=== PATIENT | female | born 1980 | race Caucasian/White ===

== ENCOUNTER 2024-07-07 10:29 | Outpatient (AMB) | payer MEDICARE, MEDICAID, SELFPAY ==
--- NOTE | 2024-07-07 10:38 | MHC.PC.OV ---
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 // Med review Intake Note: Solange is here today to establish care and to discuss her medication News Video Editor Required: No Allergies No Known Allergies Allergy (Verified 07/07/24 10:42) Tobacco use date assessed: 07/07/24 Dental Screening Dental Screen Date: 07/07/24 Did you have a dental visit in the last 12 months?: No Did you have a dental problem in the last 6 months where you did not have access to dental care?: No Was dental information given to patient?: Yes HPI HPI Comments History of Present Illness Details This is a 43-year-old female with a past medical history of CVA 2009 and 2013, eating disorder in remission, anxiety with depression, fine motor impairment, legal blindness of both eyes, ataxia, muscle spasticity, vitamin-D deficiency and chronic pain presenting to establish care. Her prior medical records are unavailable. She is accompanied by 1 of her caretakers, Juanita. The patient had her 1st stroke in 2009 and her 2nd stroke in 2013. She says this was the result of her eating disorder which has been in remission over the past decade. She suffered from bulimia and anorexia. She has apraxia and ataxia and weakness due to the stroke. She is wheelchair-bound. They need a new prescription for a wheelchair sent to [facility]. She has weekly physical therapy, occupational therapy and speech therapy. She also has staffing around the clock at home. She lives with her . Anxiety and depression are treated with fluoxetine 40 mg daily. She would like a referral for a therapist. Her is 1 of her caretakers, and this creates some stress at home. Her PHQ-9 is positive with a score of 6. No SI or HI. She has hypothyroidism which is treated with levothyroxine 25 mcg daily. No recent labs, but historically she was euthyroid. She has chronic pain including neuropathy in her feet resulting from prior strokes. Patient says feet are always cold since her strokes years ago. She also has muscle spasticity in the lot of pain in her neck and her middle and lower back. Her muscles are very tight when she wakes up in the morning. The pain does not radiate down her arms to her hands. She is interested in referral to pain management and physiatry. She would also like to be referred to [facility] in [place] for physical therapy. She is due for a mammogram. This is ordered. She is due for a colonoscopy. Referral placed. Referred for annual gynecologic exam. ROS: Constitutional: No unexplained weight loss, fever or night sweats Neurologic: see HPI Musculoskeletal: see HPI Hematologic/Lymphatics: No bleeding or bruising. Psychiatric: No SI/HI. Physical exam: Constitutional: Alert, in no distress. Seated in wheelchair. Head: Normocephalic. Neck: Supple, Full range of motion. No lymphadenopathy. Respiratory: Clear to auscultation. Cardiovascular: S1 S2 regular. No murmur Neurologic: Choppy speech consistent with apraxia Skin: No rashes or lesions. Spine: No midline tenderness. Paraspinal muscles and trapezius tender. Full range of motion of the cervical spine. Extremities: Lower legs and feet are cool and mottled. No open wounds. Upper and lower extremity pulses intact bilaterally. 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 Alcohol intake: former Patient Tobacco Use Status: Never used Tobacco e-Cigarette/Vaping Use: Currently Using Substance Use Type: Marijuana service: No Current occupational status: disabled Current occupational exposures/hazards: No Cognitive needs: No Hearing needs: No Vision needs: Yes Questionnaire PHQ-9 Over the last 2 weeks, how often have you been bothered by any of the following problems? 1. Little interest or pleasure in doing things: not at all 2. Feeling down, depressed, or hopeless: not at all 3. Trouble falling or staying asleep, or sleeping too much: not at all 4. Feeling tired or having little energy: several days 5. Poor appetite or overeating: more than half the days 6. Feeling bad about yourself - or that you are a failure or have let yourself or your family down: several days 7. Trouble concentrating on things, such as reading the newspaper or watching television: more than half the days 8. Moving or speaking so slowly that other people could have noticed. Or the opposite - being so fidgety or restless that you have been moving around a lot more than usual: not at all 9. Thoughts that you would be better off or of hurting yourself in some way: not at all Total score: 6 Depression Screening Interpretation: Positive (Waiting List) Depression Screening Follow-up: Existing condition, In treatment and Other Depression Screening Done: Yes 30474 - PHQ-9 Billing: Patient declined-do not bill Source: Developed by Drs. Get Garcia, Shante Yi, Domnigo Sanchez and colleagues, with an educational eduard from [employer]. Thrive Questionnaire Date Thrive assessed: 07/05/24 I am a: Patient What is your living situation today?: I have a steady place to live Within the past 12 months, did the food you bought not last and you didn't have the money to get more?: Never true Within the past 12 months, did you worry whether your food would run out before you got money to buy more?: Never true Do you have trouble paying for medicines?: No Do you have trouble getting transportation to medical appointments?: No Do you have trouble paying your heating and electricity bill?: No Do you have trouble taking care of your child, family member or friend?: No Do you have trouble with day-to-day activities such as bathing, preparing meals, shopping, managing finances, etc.?: Yes Are you currently unemployed and looking for a job?: No Are you interested in more education?: No Please select the resources that you would like help with: None Currently or been in a relationship where the following occur: No concerns reported THRIVE Score: 0 AUDIT C Alcohol Use Questionnaire (AUDIT-C) 1. How often do you have a drink containing alcohol?: Never 2. How many drinks containing alcohol do you have on a typical day when you are drinking?: 1 or 2 3. How often do you have six or more drinks on one occasion?: Never Total Score: 0 CAREY-7 AMB Questionnaire CAREY-7 Date CAREY - 7 assessed: 07/07/24 Feeling nervous, anxious, or on edge: 3 = Nearly every day Not being able to stop or control worryin = Nearly every day Worrying too much about different things: 3 = Nearly every day Trouble relaxin = Nearly every day Being so restless that it is hard to sit still: 2 = More than half the days Becoming easily annoyed or irritable: 2 = More than half the days Feeling afraid as if something awful might happen: 1 = Several days Total CAREY-7 score (0-4 normal; 5-9 mild; 10-14 moderate; 15-21 severe): 17 Source: Developed by Drs. Get Garcia, Shante Yi, Domingo Sanchez and colleagues, with an educational eduard from [employer]. CAREY-7 Assessment Billing CAREY-7 Assessment Tool: CAREY-7 Assessment 18560 Physical exam (Primary Care) Vital Signs: Last Vital Signs Pulse 72 07/07/24 10:47 Resp 14 07/07/24 10:47 BP 102/62 07/07/24 10:47 Pulse Ox 98 07/07/24 10:47 Oxygen Delivery Method Room Air 07/07/24 10:47 BMI result Body Mass Index 18.9 Tobacco/Smoking Status: Tobacco use Status Tobacco use date assessed 07/07/24 07/07/24 10:59 Patient Tobacco Use Status Never used Tobacco 07/07/24 10:59 e-Cigarette/Vaping Use Currently Using 07/07/24 10:59 PHQ-9: PHQ-9 Score PHQ-9: Total score 6 07/07/24 13:09 Depression Screening Interpretation: Positive (Waiting List) Depression Screening Follow-up: Existing condition, In treatment and Other Thrive Assessment: Date of Thrive Assessment Date Thrive assessed 07/05/24 07/07/24 10:59 Currently or been in a relationship where the following occur: No concerns reported Coding Level of Care Code New Pt Level 4 (80334) Complex EM visit Add On G2211 Diagnoses Anxiety and depression F41.9; F32.A Vitamin D deficiency E55.9 Cervicalgia M54.2 Chronic bilateral thoracic back pain M54.6; G89.29 Chronicity: chronic Back pain laterality: bilateral Chronic bilateral low back pain without sciatica M54.50; G89.29 Chronicity: chronic Back pain laterality: bilateral Sciatica presence: without sciatica History of CVA with residual deficit I69.30 Muscle spasm of back M62.830 Other specified hypothyroidism E03.8 Hypothyroidism type: other 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 Referred to Psychology. (2) Vitamin D deficiency: Code(s): E55.9 - Vitamin D deficiency, unspecified Category: Medical Plan: Continue supplement. Check vitamin-D level. (3) Cervicalgia: Code(s): M54.2 - Cervicalgia Category: Medical Plan: Ordered x-rays of the cervical, thoracic and lumbar spine. Refer to physiatry. Trial of cyclobenzaprine 5-10 mg in the evening. Discussed it can cause sedation and dizziness and increase fall risk. (4) Thoracic back pain: Code(s): M54.6 - Pain in thoracic spine Category: Medical Qualifiers: Chronicity: chronic Back pain laterality: bilateral Qualified Code(s): M54.6 - Pain in thoracic spine; G89.29 - Other chronic pain (5) Lumbago: Code(s): M54.50 - Low back pain, unspecified Category: Medical Qualifiers: Chronicity: chronic Back pain laterality: bilateral Sciatica presence: without sciatica Qualified Code(s): M54.50 - Low back pain, unspecified; G89.29 - Other chronic pain (6) History of CVA with residual deficit: Comment: x 2 in 2009 and 2014 due to eating disorder Code(s): I69.30 - Unspecified sequelae of cerebral infarction Category: Medical Plan: Continue speech therapy, occupational therapy and physical therapy. Referral placed to [facility]. Patient has staffing around the clock at home. She is wheelchair-bound due to residual effects of stroke including weakness and ataxia. Wheelchair is medically necessary. Prescription will be sent to [facility]. (7) Muscle spasm of back: Code(s): M62.830 - Muscle spasm of back Category: Medical (8) Hypothyroid: Code(s): E03.9 - Hypothyroidism, unspecified Category: Medical Qualifiers: Hypothyroidism type: other Qualified Code(s): E03.8 - Other specified hypothyroidism Plan: Continue levothyroxine. Check TSH. 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 (10) Ataxia: Code(s): R27.0 - Ataxia, unspecified Category: Medical Plan: Referral placed for physical therapy. Plan Follow up in 2 months for a physical exam. Orders: Orders Vitamin B12 07/07/24 E55.9 - Vitamin D deficiency, unspecified, F32.A - Depression, unspecified, F41.9 - Anxiety disorder, unspecified, Z13.6 - Encounter for screening for cardiovascular disorders, Z78.9 - Other specified health status, Z91.89 - Other specified personal risk factors, not elsewhere classified TSH reflex Free T4 07/07/24 E55.9 - Vitamin D deficiency, unspecified, F32.A - Depression, unspecified, F41.9 - Anxiety disorder, unspecified, Z13.6 - Encounter for screening for cardiovascular disorders, Z78.9 - Other specified health status Complete Blood Count no Diff 07/07/24 E55.9 - Vitamin D deficiency, unspecified, F32.A - Depression, unspecified, F41.9 - Anxiety disorder, unspecified, Z13.6 - Encounter for screening for cardiovascular disorders, Z78.9 - Other specified health status Comprehensive Met. Panel 07/07/24 E55.9 - Vitamin D deficiency, unspecified, F32.A - Depression, unspecified, F41.9 - Anxiety disorder, unspecified, Z13.6 - Encounter for screening for cardiovascular disorders, Z78.9 - Other specified health status XR thoracic spine 2V 07/07/24 M54.6 - Pain in thoracic spine XR lumbar spine 2-3V 07/07/24 M54.6 - Pain in thoracic spine Vitamin D 25-OH (D2 and D3) Today E55.9 - Vitamin D deficiency, unspecified, G62.9 - Polyneuropathy, unspecified Lipid Panel 07/07/24 E55.9 - Vitamin D deficiency, unspecified, E78.5 - Hyperlipidemia, unspecified, F32.A - Depression, unspecified, F41.9 - Anxiety disorder, unspecified, Z13.6 - Encounter for screening for cardiovascular disorders, Z78.9 - Other specified health status MM screening mammo BI 07/07/24 Z12.31 - Encounter for screening mammogram for malignant neoplasm of breast XR cervical spine 5V 07/07/24 M54.2 - Cervicalgia, M54.50 - Low back pain, unspecified, M54.6 - Pain in thoracic spine PT Evaluation and Treatment Today G89.29 - Other chronic pain, M54.2 - Cervicalgia, M54.50 - Low back pain, unspecified, M54.6 - Pain in thoracic spine, M62.830 - Muscle spasm of back, R27.0 - Ataxia, unspecified Referrals [facility] Referral Z01.419 - Encounter for gynecological examination (general) (routine) without abnormal findings Gastroenterology Referral Z12.11 - Encounter for screening for malignant neoplasm of colon Medications: New cyclobenzaprine 5 - 10 mg (1 - 2 x 5 mg) PO BEDTIME PRN 30 tabs 0RF muscle spasm chair, wheel (Wheel chair) As directed 1 ea 0RF I69.30 - Unspecified sequelae of cerebral infarction, I69.393 - Ataxia following cerebral infarction
[2024-07-07 10:47] VITALS: BP 102/62; PULSE 72; RESP 14; O2SAT 98; BMI 18.9
== END 2024-07-07 11:27 | disposition home or self-care (01) ==
LOC: HO.HMCFM 10:30
PROVIDERS: PCP Physician Assistant Medical; Visit Provider Physician Assistant Medical
DX: F41.9 Anxiety disorder, unspecified (principal); F32.A Depression, unspecified; E55.9 Vitamin D deficiency, unspecified; M54.2 Cervicalgia; M54.6 Pain in thoracic spine; G89.29 Other chronic pain; M54.50 Low back pain, unspecified; I69.30 Unspecified sequelae of cerebral infarction; M62.830 Muscle spasm of back; E03.8 Other specified hypothyroidism; I69.390 Apraxia following cerebral infarction; R27.0 Ataxia, unspecified

== ENCOUNTER → 2024-07-07 10:29 | Outpatient (BNVA) | payer MEDICARE, MEDICAID, SELFPAY | LOC: CF 07-08 11:02 | PROVIDERS: PCP Physician Assistant Medical; Visit Provider Physician Assistant Medical | DX: E55.9 Vitamin D deficiency, unspecified (principal); M54.2 Cervicalgia; M54.6 Pain in thoracic spine; G89.29 Other chronic pain; M54.50 Low back pain, unspecified; M62.830 Muscle spasm of back; E03.8 Other specified hypothyroidism; R27.0 Ataxia, unspecified; F41.9 Anxiety disorder, unspecified; F32.A Depression, unspecified; Z86.73 Personal history of transient ischemic attack (TIA), and cerebral infarction without residual deficits | CPT/HCPCS: 96127; 99202 ==

== ENCOUNTER 2024-07-08 10:43 | Outpatient (REF) | payer MEDICARE, MEDICAID, SELFPAY ==
--- NOTE | ~2024-07-08 | XR_ITS ---
EXAMINATION: XR LUMBOSACRAL SPINE CLINICAL INFORMATION: M54.6 - Pain in thoracic spine COMPARISON: None available. TECHNIQUE: Three views of the lumbosacral spine. FINDINGS: No acute cortical disruption or malalignment. No lytic or blastic lesions. XR/XR lumbar spine 2-3V IMPRESSION: No acute fracture or listhesis. Negative x-ray. Electronically signed by: Olman Dockery MD 07/11/2024 11:31 AM EDT
--- NOTE | ~2024-07-08 | XR_ITS ---
EXAMINATION: XR CERVICAL SPINE CLINICAL INFORMATION: M54.2 - Cervicalgia COMPARISON: None available. TECHNIQUE: 3 views of the cervical spine were obtained. FINDINGS: Craniocervical junction is intact. Marginal osteophyte formation and endplate sclerosis decreased intervertebral disc height and subchondral irregularity C4-5 and C5-6 level. Loss of the physiologic lordosis. No acute cortical disruption or gross malalignment. No lytic or blastic lesion Upper airways patent. XR/XR cervical spine 3V IMPRESSION: Cervical spondylosis C4-5 and C5-6 levels. Electronically signed by: Olman Dockery MD 07/11/2024 10:23 AM EDT
--- NOTE | ~2024-07-08 | XR_ITS ---
EXAMINATION: XR THORACIC SPINE CLINICAL INFORMATION: M54.6 - Pain in thoracic spine COMPARISON: None available. TECHNIQUE: 3 views of the thoracic spine were obtained. FINDINGS: There is a gentle levoconvex scoliosis, apex at T11. There is a normal kyphosis. There is no fracture, compression deformity, or suspicious bone lesion. There is normal alignment without subluxation. Moderate disc degeneration noted throughout the thoracic spine. Normal facet alignment with mild multilevel degenerative facet arthrosis. The imaged soft tissues, mediastinal contents, and lungs appear normal. XR/XR thoracic spine 2V IMPRESSION: 1. No acute findings of the thoracic spine. 2. Mild to moderate degenerative spondylosis. Electronically signed by: Scott Curtis MD 07/11/2024 01:53 PM EDT
[2024-07-08 11:31] LABS: Hematocrit 42.5 % (37.0-47.0); Hemoglobin 13.9 g/dl (12.0-16.0); Mean Corpuscular HGB Conc 32.7 g/dl (31.0-35.0); Mean Corpuscular Hemoglobin 30.8 pg (27.0-33.0); Mean Platelet Volume 11.7 fL (9.4-12.3); Platelet Count 194 X10*3/uL (160-400); Red Blood Count 4.52 X10*6/uL (4.20-5.50); White Blood Count 6.4 X10*3/uL (4.8-10.8)
[2024-07-08 13:02] LABS: Alanine Aminotransferase 11 U/L (0-31); Albumin Level 4.3 g/dL (3.5-5.0); Alkaline Phosphatase 84 U/L (39-117); Anion Gap 14 (12-20); Aspartate Amino Transferase 30 U/L (5-31); Bilirubin Total 0.6 mg/dL (0.0-1.0); Blood Urea Nitrogen 11 mg/dL (9-16); Calcium 9.6 mg/dL (8.4-10.2); Carbon Dioxide 22 mmol/L (22-29); Chloride 110 mmol/L (96-108); Cholesterol 221 mg/dL (<200); Estimated Glomerular Filt Rate > 60; Glucose Random 89 mg/dL (60-115); HDL Cholesterol 78 mg/dL (>40); LDL Cholesterol Calculated 133 mg/dL (<100); Potassium 4.5 mmol/L (3.3-5.1); Sodium 141 mmol/L (135-145); TSH reflex Free T4 1.65 uIU/mL (0.32-4.0); Total Protein 7.5 g/dL (6.5-8.0); Triglycerides 50 mg/dL (<150)
[2024-07-08 13:18] LABS: Vitamin B12 489 pg/mL (200-900)
[2024-07-14 13:27] LABS: Vitamin D 25-OH, D2 <4 ng/mL; Vitamin D 25-OH, D3 56 ng/mL; Vitamin D 25-OH, Total 56 ng/mL (30-100)
== END 2024-07-08 10:44 | disposition home or self-care (01) ==
LOC: HO.XRAY 10:43
PROVIDERS: PCP Physician Assistant Medical; Visit Provider Physician Assistant Medical
DX: Z13.89 Encounter for screening for other disorder (principal)
CPT/HCPCS: 36415; 72040; 72070; 72100; 80053; 80061; 82306; 82607; 84443; 85027

== ENCOUNTER 2024-07-08 11:46 | Emergency (ER) | payer MEDICARE, MEDICAID, SELFPAY ==
--- NOTE | ~2024-07-08 | CT_ITS ---
EXAMINATION: CT HEAD WITHOUT CONTRAST CLINICAL INFORMATION: Head injury, right forehead contusion. COMPARISON: None available. TECHNIQUE: Contiguous axial imaging was performed from the skull base to vertex without intravenous administration of contrast. This CT examination was performed using dose optimization techniques as appropriate, variously including the following: *Automated exposure control *Adjustment of mA and/or kV according to patient size (this includes techniques or standardized protocols for targeted exams where dose is matched to indication/reason for exam; i.e. extremities or head) *Use of iterative reconstruction technique FINDINGS: There is no evidence of intracranial hemorrhage or extra-axial fluid collection. There is no mass effect, or edema. No CT evidence of acute territorial infarct. Extensive large territory symmetric cystic encephalomalacia is present of the superior frontal lobes, parietal lobes, and occipital lobes. Mild ex vacuo dilatation of the lateral ventricular atria. Ventricles otherwise normal in size and configuration. No hydrocephalus. No midline shift. Negative hyperdense MCA sign. Negative insular ribbon sign. Normal pituitary. Globes and orbital contents image normally. Extracranial soft tissues demonstrate a small right frontal scalp hematoma. The paranasal sinuses, mastoid air cells, and tympanic cavities are normally aerated. No suspicious bony abnormalities. There are no acute fractures evident. CT/CT head/brain wo IV con IMPRESSION: 1. Small right frontal scalp hematoma. No fracture. 2. No acute intracranial abnormality. 3. Extensive bilateral symmetric cystic encephalomalacia of the superior frontal, parietal, and occipital lobes. This is likely due to previous / ischemic event or possibly secondary to old trauma.. Electronically signed by: Scott Curtis MD 07/08/2024 01:14 PM EDT
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
[2024-07-08 12:01] VITALS: BP 133/79; PULSE 83; RESP 16; TEMP 36.8; O2SAT 98; BMI 18.9
[2024-07-08 12:07] VITALS: BP 133/79; PULSE 83; RESP 16; TEMP 36.8; O2SAT 98
[2024-07-08 14:21] VITALS: BP 126/73; PULSE 77; RESP 14; TEMP 36.3; O2SAT 100
[2024-07-08 14:28] VITALS: BP 126/73; PULSE 77; RESP 14; TEMP 36.3; O2SAT 100
== END 2024-07-08 14:30 | disposition home or self-care (01) ==
PROVIDERS: Emergency Provider Emergency Medicine; PCP Physician Assistant Medical
DX: S00.83XA Contusion of other part of head, initial encounter (principal); R51.9 Headache, unspecified; M54.6 Pain in thoracic spine; M54.2 Cervicalgia; W05.0XXA Fall from non-moving wheelchair, initial encounter; Y93.9 Activity, unspecified; Y92.239 Unspecified place in hospital as the place of occurrence of the external cause; Y99.8 Other external cause status; Z86.73 Personal history of transient ischemic attack (TIA), and cerebral infarction without residual deficits; Z79.899 Other long term (current) drug therapy
CPT/HCPCS: 36415; 70450; 72040; 72070; 72100; 80053; 80061; 82306; 82607; 84443; 85027; 99284

== ENCOUNTER → 2024-07-08 11:54 | Outpatient (BNV) | payer MEDICARE, MEDICAID, SELFPAY | PROVIDERS: Emergency Provider Emergency Medicine; PCP Physician Assistant Medical; Visit Provider Radiology Diagnostic Radiology | DX: S00.83XA Contusion of other part of head, initial encounter (principal) | CPT/HCPCS: 70450; 72040; 72070; 72100 ==

== ENCOUNTER 2024-07-21 13:49 | Outpatient (AMB) | payer MEDICARE, MEDICAID, SELFPAY ==
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
[2024-07-21 13:58] VITALS: BP 98/58; PULSE 87; TEMP 36.6; O2SAT 98; BMI 18.9
[2024-07-21 14:03] VITALS: BP 100/58
== END 2024-07-21 14:23 | disposition home or self-care (01) ==
LOC: HO.HMCFM 13:50
PROVIDERS: PCP Physician Assistant Medical; Visit Provider Physician Assistant Medical
DX: F41.9 Anxiety disorder, unspecified (principal); F32.A Depression, unspecified; E55.9 Vitamin D deficiency, unspecified; M54.2 Cervicalgia; M54.6 Pain in thoracic spine; G89.29 Other chronic pain; M54.50 Low back pain, unspecified; I69.30 Unspecified sequelae of cerebral infarction; M62.830 Muscle spasm of back; E03.8 Other specified hypothyroidism; I69.390 Apraxia following cerebral infarction; R27.0 Ataxia, unspecified; S09.90XA Unspecified injury of head, initial encounter

== ENCOUNTER → 2024-07-21 13:49 | Outpatient (BNVA) | payer MEDICARE, MEDICAID, SELFPAY | PROVIDERS: PCP Physician Assistant Medical; Visit Provider Physician Assistant Medical | DX: F41.9 Anxiety disorder, unspecified (principal); F32.A Depression, unspecified; E55.9 Vitamin D deficiency, unspecified; M54.2 Cervicalgia; M54.6 Pain in thoracic spine; G89.29 Other chronic pain; M54.50 Low back pain, unspecified; I69.30 Unspecified sequelae of cerebral infarction; M62.830 Muscle spasm of back; E03.8 Other specified hypothyroidism; I69.390 Apraxia following cerebral infarction; R27.0 Ataxia, unspecified; S09.90XA Unspecified injury of head, initial encounter; H54.8 Legal blindness, as defined in USA; Z79.899 Other long term (current) drug therapy; X58.XXXA Exposure to other specified factors, initial encounter; Y93.9 Activity, unspecified; Y92.9 Unspecified place or not applicable; Y99.9 Unspecified external cause status | CPT/HCPCS: 96127; 99212 ==

== ENCOUNTER 2024-08-02 11:17 | Outpatient (AMB) | payer MEDICARE, MEDICAID, SELFPAY ==
--- NOTE | 2024-08-02 11:20 | A.OFFVIS_ITS ---
Vital Signs 08/02/24 11:24 Height 5 ft 1 in Weight 100 lb BMI 18.9 BP 116/64 Blood Pressure Location Rt brachial Position Sitting Pulse 80 Pulse Source Pulse Oximeter Pulse Oximetry (%) 100 Oxygen Delivery Method Room Air Intake Visit Reasons: Low back pain, unspecified Intake Note: Pain today 07/14 Warehouse Production Worker Required: No Accompanied by: MANAGER CAREER Allergies No Known Allergies Allergy (Verified 08/02/24 11:24) Medication List - Last Reconciled 08/02/24 by WILMA Zapata chair, wheel (Wheel chair) As directed cholecalciferol (vitamin D3) (Vitamin D3) 125 mcg PO DAILY cyclobenzaprine 5 - 10 mg (1 - 2 x 5 mg) PO BEDTIME PRN docusate sodium 50 mg PO DAILY fluoxetine 40 mg PO DAILY levothyroxine 25 mcg PO DAILY multivitamin (Daily Multi-Vitamin tablet) 1 tab PO DAILY vitamin B complex 1 tab PO DAILY HPI Comments Details: The patient is a very pleasant 43-year-old female presenting with chronic neck and low back pain, exacerbated following a fall in early July. She has a significant history of strokes in 2009 and 2013, resulting in residual neurological deficits such as right-sided weakness and visual impairment. Her chronic pain is characterized by muscle spasms in the neck and between the shoulder blades, with the pain radiating toward both shoulders into upper back. Minimal low back pain is reported in comparison. Her chronic pain was compounded after a fall, leading to right forehead injury and increased neck pain for which she was treated with a cervical collar in ER on 07/08/24 and subsequent imaging that showed no acute findings except small right frontal scalp hematoma. She has attempted pain management through medication (Tylenol, Flexeril) and physical therapies, achieving partial relief. Cervical and thoracic degenerative changes on imaging as noted below correlate with her symptoms. She also experiences chronic peripheral neuropathy with numbness and cool sensations in lower extremities since the onset of her strokes. Patient has MANAGER CAREER services 27/10 with home PT and is looking into outpatient PT services. - Onset: Chronic with exacerbations; notable fall in early July - Quality: Muscle spasms, aching, dull, tight, sore, radiating neck pain - Location: Neck, radiating to shoulders; minimal low back pain - Radiation: Head and shoulders - Exacerbating factors: Side rotation of the head, looking up; weather changes - Relieving factors: Tylenol, Flexeril, heat and ice applications - Functional impact: Impaired coordination and mobility; uses wheelchair - Affect: Challenges with coordination and vision due to strokes impact daily fu nction - Analgesia: Using Tylenol and recently Flexeril; goal to enhance mobility and reduce muscle spasms - Adverse Effects: None reported from medications - Activities of Daily Living: Limited standing/walking; dependent on wheelchair - Aberrant Drug Related Behaviors: None reported [facility] Medical History Thoracic spondylosis Cervical spondylosis Eating disorder in remission 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 Alcohol intake: former Patient Tobacco Use Status: Never used Tobacco e-Cigarette/Vaping Use: Currently Using Substance Use Type: Marijuana service: No Current occupational status: disabled Current occupational exposures/hazards: No Cognitive needs: No Hearing needs: No Vision needs: Yes Review of Systems Const Details: - Neurological: Reports right-sided weakness, ataxia, apraxia; - Musculoskeletal: Reports neck pain, radiating shoulder pain, minimal low back pain, normal shoulder range of motion - Sensory: Reports numbness and cool sensation in feet and hands since stroke All systems reviewed & are unremarkable except as noted in HPI and below Physical Exam Vital Signs: Last Vital Signs Pulse 80 08/02/24 11:24 BP 116/64 08/02/24 11:24 Pulse Ox 100 08/02/24 11:24 Oxygen Delivery Method Room Air 08/02/24 11:24 BMI result Body Mass Index 18.9 General: Appears afebrile. Alert and oriented. Mood and affect appropriate. Follows and participates in conversation appropriately. Respiratory effort is unlabored. No cough. Able to transition from sit to stand with assistance. Sitting comfortaly in wheelchair. Able to stand and walk short distances with MANAGER CAREER assistance. Neck Other: Significant tightness throughout right trapezius and subscapular (right>left) as well as TTP throughout bilateral upper trapezius muscles. No paravertebral tenderness over facet joints bilaterally. Multiple taut bands palpated throughout bilateral upper trapezius muscles. Neck: Yes normal visual inspection, Yes full ROM, Yes no lymphadenopathy, Yes supple, No anterior neck swelling, Yes no JVD, No prominent supraclavicular fat pad and No prominent dorsocervical fat pad General: Yes no CVA tenderness Back/Spine/Pelvis Back: no CVA tenderness Cervical Spine: cervical ROM normal, cervical muscular tenderness, pain with cervical ROM, No Cervical spine scars present, cervical spasm and No Cervical spine tenderness Thoracic/Lumbar Spine: thoracic and lumbar spine normal to inspection, No Thoracic/lumbar spine scar(s), No thoracic spinal tenderness and No lumbar spinal tenderness Results Reviewed Results Reviewed: CT HEAD WITHOUT CONTRAST 07/08/24 CLINICAL INFORMATION: Head injury, right forehead contusion. FINDINGS: There is no evidence of intracranial hemorrhage or extra-axial fluid collection. There is no mass effect, or edema. No CT evidence of acute territorial infarct. Extensive large territory symmetric cystic encephalomalacia is present of the superior frontal lobes, parietal lobes, and occipital lobes. Mild ex vacuo dilatation of the lateral ventricular atria. Ventricles otherwise normal in size and configuration. No hydrocephalus. No midline shift. Negative hyperdense MCA sign. Negative insular ribbon sign. Normal pituitary. Globes and orbital contents image normally. Extracranial soft tissues demonstrate a small right frontal scalp hematoma. The paranasal sinuses, mastoid air cells, and tympanic cavities are normally aerated. No suspicious bony abnormalities. There are no acute fractures evident. IMPRESSION: 1. Small right frontal scalp hematoma. No fracture. 2. No acute intracranial abnormality. 3. Extensive bilateral symmetric cystic encephalomalacia of the superior frontal, parietal, and occipital lobes. This is likely due to previous / ischemic event or possibly secondary to old trauma.. XR CERVICAL SPINE 07/08/24 CLINICAL INFORMATION: M54.2 - Cervicalgia FINDINGS: Craniocervical junction is intact. Marginal osteophyte formation and endplate sclerosis decreased intervertebral disc height and subchondral irregularity C4-5 and C5-6 level. Loss of the physiologic lordosis. No acute cortical disruption or gross malalignment. No lytic or blastic lesion Upper airways patent. IMPRESSION: Cervical spondylosis C4-5 and C5-6 levels. Assessment & Plan Assessment & Plan (1) Cervicalgia: Code(s): M54.2 - Cervicalgia Category: Medical (2) Thoracic back pain: Code(s): M54.6 - Pain in thoracic spine Category: Medical Qualifiers: Chronicity: chronic Back pain laterality: bilateral Qualified Code(s): M54.6 - Pain in thoracic spine; G89.29 - Other chronic pain (3) Muscle spasm of back: Code(s): M62.830 - Muscle spasm of back Category: Medical (4) Peripheral neuropathy: Code(s): G62.9 - Polyneuropathy, unspecified Category: Medical (5) Cervical spondylosis: Code(s): M47.812 - Spondylosis without myelopathy or radiculopathy, cervical region Category: Medical (6) Thoracic spondylosis: Code(s): M47.814 - Spondylosis without myelopathy or radiculopathy, thoracic region Category: Medical (7) Myofascial neck pain: Code(s): M54.2 - Cervicalgia Category: Medical (8) Central pain syndrome: Code(s): G89.0 - Central pain syndrome Category: Medical Plan Schedule cervical trigger point injections (trapezius and subscapular) with dry needling for neck spasms and myofascial pain. Explore diagnostic injections for potential radiofrequency ablation or peripheral nerve stimulation. Also discussed therapeutic injections and neuromodulation with SCS trial vs implant. Conduct EMG studies of the lower extremities to assess peripheral neuropathy. Continue pain management with Tylenol, Flexeril, and heat/ice application, and explore the use of capsaicin topical for peripheral neuropathy. All questions and concerns have been answered and patient agreed with the plan. Follow up for EMG/NVC results and sooner as needed. Patient was informed and verbally consented to the use of an ambient scribe for clinic note documentation during this visit. Orders: Orders NE nerve conduction velocity Today G62.9 - Polyneuropathy, unspecified, G89.0 - Central pain syndrome NE electromyogram (EMG) Today G62.9 - Polyneuropathy, unspecified, G89.0 - Central pain syndrome Patient Instructions: During the visit, I discussed cervical trigger point injections with dry needling as a therapeutic option for her chronic neck pain and muscle spasms. We also considered interventional treatments such as radiofrequency ablation or peripheral nerve stimulation for the neck and mid-back pain. The risks and bene fits of these procedures were explained, including the potential relief of muscle spasms and pain reduction. We agreed on conducting EMG studies of the lower extremities to further investigate her neuropathy. Furthermore, I provided information on continuing Tylenol and Flexeril, and the possible addition of capsaicin topical treatment for neuropathy. Information pamphlets regarding these procedures and therapies were provided, and follow-up appointments were scheduled to continue treatment progress. Coding Level of Care Code New Pt Level 4 (53942) Diagnoses Cervicalgia M54.2 Chronic bilateral thoracic back pain M54.6; G89.29 Chronicity: chronic Back pain laterality: bilateral Muscle spasm of back M62.830 Peripheral neuropathy G62.9 Cervical spondylosis M47.812 Thoracic spondylosis M47.814 Myofascial neck pain M54.2 Central pain syndrome G89.0
[2024-08-02 11:24] VITALS: BP 116/64; PULSE 80; O2SAT 100; BMI 18.9
== END 2024-08-02 12:06 | disposition home or self-care (01) ==
LOC: HO.PMC 11:18
PROVIDERS: PCP Physician Assistant Medical; Referring Provider Physician Assistant Medical; Visit Provider Nurse Practitioner Family
DX: M54.2 Cervicalgia (principal); M54.6 Pain in thoracic spine; G89.29 Other chronic pain; M62.830 Muscle spasm of back; G62.9 Polyneuropathy, unspecified; M47.812 Spondylosis without myelopathy or radiculopathy, cervical region; M47.814 Spondylosis without myelopathy or radiculopathy, thoracic region; G89.0 Central pain syndrome
CPT/HCPCS: 99204

== ENCOUNTER → 2024-08-02 11:17 | Outpatient (BNVA) | payer MEDICARE, MEDICAID, SELFPAY | PROVIDERS: PCP Physician Assistant Medical; Referring Provider Physician Assistant Medical; Visit Provider Nurse Practitioner Family | DX: M54.2 Cervicalgia (principal); M54.6 Pain in thoracic spine; M62.830 Muscle spasm of back; M47.812 Spondylosis without myelopathy or radiculopathy, cervical region; M47.814 Spondylosis without myelopathy or radiculopathy, thoracic region; G62.9 Polyneuropathy, unspecified; G89.0 Central pain syndrome; G89.29 Other chronic pain | CPT/HCPCS: 99202 ==

== ENCOUNTER → 2024-09-16 11:00 | Outpatient (BNV) | payer MEDICARE, MEDICAID, SELFPAY | PROVIDERS: PCP Physician Assistant Medical; Visit Provider Internal Medicine | DX: Z12.31 Encounter for screening mammogram for malignant neoplasm of breast (principal) | CPT/HCPCS: 77063; 77067 ==

== ENCOUNTER 2024-09-16 11:01 | Outpatient (REF) | payer MEDICARE, MEDICAID, SELFPAY | END 2024-09-16 11:02 | disposition home or self-care (01) | LOC: HO.MAMMO 11:01 | PROVIDERS: PCP Physician Assistant Medical; Visit Provider Physician Assistant Medical | DX: Z12.31 Encounter for screening mammogram for malignant neoplasm of breast (principal) | CPT/HCPCS: 77063; 77067 ==

== ENCOUNTER 2024-10-19 10:37 | Outpatient (REF) | payer MEDICARE, MEDICAID, SELFPAY ==
--- NOTE | 2024-10-19 10:41 | EMG_ITS ---
Chief complaint: Bilateral weakness from 2 previous strokes, spasticity, paresthesias and poor proprioception on lower extremities Reason for referral: Evaluate for peripheral neuropathy Referred by: Sintia Wilkes NP Procedure done: Bilateral lower extremity NCS/EMG Precautions and/or limitations: None The limb temperature was monitored continuously and remained between 32-36 degrees C during the performance of the NCS. Nerve Conduction Studies Anti Sensory Summary Table ?Stim Site NR Onset (ms) Norm Onset (ms) Peak (ms) Norm Peak (ms) O-P Amp (?V) Norm O-P Amp Site1 Site2 Delta-0 (ms) Dist (cm) Ankur (m/s) Norm Ankur (m/s) Left Sural Anti Sensory (Lat Mall) Calf ? 3.7 4.4 <4.0 14.8 >5.0 Calf Lat Mall 3.7 14.0 38 Right Sural Anti Sensory (Lat Mall) Calf ? 3.6 4.5 <4.0 15.4 >5.0 Calf Lat Mall 3.6 14.0 39 Motor Summary Table ?Stim Site NR Onset (ms) Norm Onset (ms) O-P Amp (mV) Norm O-P Amp iAmp (mV) Amp (1st) (%) Site1 Site2 Delta-0 (ms) Dist (cm) Ankur (m/s) Norm Ankur (m/s) Right Peroneal Motor (Ext Dig Brev) Ankle ? 5.4 <4.0 3.9 >2.5 5.1 100.0 Ankle Ext Dig Brev 5.4 0.0 B Fib ? 10.9 4.2 5.6 107.7 B Fib Ankle 5.5 27.0 49 >40 Poplt ? 12.4 4.1 5.4 105.1 Poplt B Fib 1.5 6.0 40 >40 Left Tibial Motor (Abd Holliday Brev) Ankle ? 5.3 <5 11.3 >2.5 15.9 100.0 Ankle Abd Holliday Brev 5.3 0.0 Knee ? 13.7 9.9 14.7 87.6 Knee Ankle 8.4 37.0 44 >40 Right Tibial Motor (Abd Holliday Brev) Ankle ? 4.8 <5 8.7 >2.5 11.7 100.0 Ankle Abd Holliday Brev 4.8 0.0 Knee ? 14.8 5.2 7.5 59.8 Knee Ankle 10.0 35.0 35 >40 EMG ?Side Muscle Nerve Root Ins Act Fibs Psw Amp Dur Poly Recrt Int Pat Comment Right AbdHallucis MedPlantar S1-2 Incr 1+ 1+ Nml Nml 0 Nml Complete Right AntTibialis Dp Br Peron L4-5 Nml Nml Nml Nml Nml 0 Nml Complete Right PostTibialis Tibial L5, S1 Nml Nml Nml Nml Nml 0 Nml Complete Right MedGastroc Tibial S1-2 Nml Nml Nml Nml Nml 0 Nml Complete Right VastusMed Femoral L2-4 Nml Nml Nml Nml Nml 0 Nml Complete Left AbdHallucis MedPlantar S1-2 Incr 1+ 1+ Nml Nml 0 Nml Complete Left AntTibialis Dp Br Peron L4-5 Nml Nml Nml Nml Nml 0 Nml Complete Left PostTibialis Tibial L5, S1 Nml Nml Nml Nml Nml 0 Nml Complete Left MedGastroc Tibial S1-2 Nml Nml Nml Nml Nml 0 Nml Complete Left VastusMed Femoral L2-4 Nml Nml Nml Nml Nml 0 Nml Complete FINDINGS: Right peroneal nerve showed prolonged distal latency, normal amplitude and slow conduction velocity. Right tibial nerve showed normal distal latency, normal amplitude and slow conduction velocity. Left tibial nerve showed prolonged distal latency, normal amplitude and normal conduction velocity. Bilateral sural nerves showed prolonged peak latency. Concentric needle EMG was performed in selected muscles of the bilateral lower extremity. Study revealed signs of electric abnormalities as shown in the table above. Bilateral AH showed increased insertional activity, PSWs and fibrillations. IMPRESSION: 1. This is an abnormal study. 2. There is electrodiagnostic evidence for sensorimotor polyneuropathy, axonal features. Thank you for your kind referral. Liz Strauss MD, GINNA Board Certified, [place] [employer] and Rehabilitation (ABPMR) Board Certified, [place] Board of Electrodiagnostic Medicine (ABEM) CODIN 97294 x 2 MTDD
== END 2024-10-19 10:38 | disposition home or self-care (01) ==
LOC: HO.NEURO 10:37
PROVIDERS: PCP Physician Assistant Medical; Visit Provider Nurse Practitioner Family
DX: G89.0 Central pain syndrome (principal); G62.9 Polyneuropathy, unspecified; I69.398 Other sequelae of cerebral infarction; M62.81 Muscle weakness (generalized); R94.131 Abnormal electromyogram [EMG]
CPT/HCPCS: 95886; 95909

== ENCOUNTER → 2024-10-19 10:41 | Outpatient (BNV) | payer MEDICARE, MEDICAID, SELFPAY | PROVIDERS: PCP Physician Assistant Medical; Visit Provider Physical Medicine & Rehabilitation | DX: G62.89 Other specified polyneuropathies (principal) | CPT/HCPCS: 95886; 95909 ==

== ENCOUNTER 2024-12-15 11:20 | Outpatient (AMB) | payer MEDICARE, MEDICAID, SELFPAY ==
--- NOTE | 2024-12-15 11:32 | MHC.PC.OV ---
Vital Signs 12/15/24 11:39 Height 5 ft 1 in Weight 100 lb BMI 18.9 BP 106/68 Blood Pressure Location Rt brachial Position Sitting Pulse 88 Pulse Source Pulse Oximeter Temp 98.4 F Temp Source Temporal Artery Scan Pulse Oximetry (%) 98 Oxygen Delivery Method Room Air Intake Visit Reasons: Physical Intake Note: Solange presents in the office today for her annual physical. Allergies No Known Allergies Allergy (Verified 12/15/24 11:34) Medication List - Last Reconciled 12/15/24 by MARIAH Laureano chair, wheel (Wheel chair) As directed cholecalciferol (vitamin D3) (Vitamin D3) 125 mcg PO DAILY cyclobenzaprine 5 mg PO TID PRN docusate sodium 50 mg PO DAILY fluoxetine 40 mg PO DAILY levothyroxine 25 mcg PO DAILY multivitamin (Daily Multi-Vitamin tablet) 1 tab PO DAILY polyethylene glycol 3350 (Miralax) 17 grams PO DAILY PRN vitamin B complex 1 tab PO DAILY Tobacco use date assessed: 12/15/24 Dental Screening Dental Screen Date: 12/15/24 Did you have a dental visit in the last 12 months?: Yes Did you have a dental problem in the last 6 months where you did not have access to dental care?: No Was dental information given to patient?: Patient has dentist HPI HPI Comments History of Present Illness Details This is a 43-year-old female with a past medical history of CVA 2009 and 2013, eating disorder in remission, anxiety with depression, fine motor impairment, legal blindness of both eyes, ataxia, muscle spasticity, vitamin-D deficiency and chronic pain presenting for a physical exam. She is accompanied by her GROOVING MACHINE OPERATOR, Juanita. The patient had her 1st stroke in 2009 and her 2nd stroke in 2013 secondary to bulimia and anorexia. She is wheelchair-bound. Eating disorder has been in remission over the past decade. She has apraxia and ataxia and weakness due to the stroke. She has weekly physical therapy, occupational therapy and speech therapy. She also has staffing around the clock at home. She lives with her . Requests referral for PT, OT, speech more familarity with CVA patients. Saw a very nice PT at [facility] who told her that she may not be the best fit due to patient's complexity. Anxiety and depression are treated with fluoxetine 40 mg daily. Referred for therapy today. She has hypothyroidism which is treated with levothyroxine 25 mcg daily. She had x-rays completed which demonstrated cervical and thoracic spondylosis. Evaluated by physicatry and pain management. She has chronic pain including neuropathy in her feet resulting from prior strokes. Patient says feet are always cold since her strokes years ago. She also has muscle spasticity in the lot of pain in her neck and her middle and lower back. Her muscles are very tight when she wakes up in the morning. The pain does not radiate down her arms to her hands. She has been using cyclobenzaprine BID. It wears off midday. Baclofen caused foot swelling. Mammogram is ordered. Reports last Td was 5 years ago. She has a GI consult scheduled next week for colonoscopy. ROS: Constitutional: No unexplained weight loss, fever, chills or night sweats. Eyes: +legal blindness ENT: No hearing loss, sneezing, congestion, runny nose or sore throat. Respiratory: No shortness of breath, cough or sputum production. Cardiovascular: No chest pain, chest pressure or chest discomfort. No palpitations or pedal edema. Gastrointestinal: No anorexia, nausea, vomiting or diarrhea. No abdominal pain or blood in stool. Genitourinary: No dysuria, hematuria, urinary frequency. Neurologic: No headache, dizziness, syncope Musculoskeletal: see HPI Hematologic/Lymphatics: No bleeding or bruising. No painful lymph nodes. Skin: No rash or itching. Endocrine: No cold or heat intolerance. No polyuria or polydipsia. Psychiatric: No SI/HI.. Physical exam: Constitutional: Alert, in no distress. In wheelchair. Head: Normocephalic. Eyes: Pupils are equal, round and reactive to ligh Ear, Nose and Throat: Canals clear. TMs normal. Normal nasal mucosa. No nasal discharge. No oral lesions. Neck: Supple, Full range of motion. No lymphadenopathy. No palpable thyroid masses. Respiratory: Clear to auscultation. Cardiovascular: S1 S2 regular. No murmurs. Gastrointestinal: Abdomen soft, non-tender, non-distended. Normal bowel sounds. No palpable masses. Neurologic: Choppy speech consistent with apraxia. Uncoordinated movements of head and upper extremities. Skin: No rashes Musculoskeletal: No gross deformities. Normal range of motion. Extremities: Lower legs and feet are cool and mottled. No open wounds. Upper and lower extremity pulses intact bilaterally. 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 Alcohol intake: former Patient Tobacco Use Status: Never used Tobacco e-Cigarette/Vaping Use: Currently Using Substance Use Type: Marijuana service: No Current occupational status: disabled Current occupational exposures/hazards: No Cognitive needs: No Hearing needs: No Vision needs: Yes Questionnaire PHQ-9 Over the last 2 weeks, how often have you been bothered by any of the following problems? 1. Little interest or pleasure in doing things: not at all 2. Feeling down, depressed, or hopeless: several days 3. Trouble falling or staying asleep, or sleeping too much: not at all 4. Feeling tired or having little energy: several days 5. Poor appetite or overeating: nearly every day 6. Feeling bad about yourself - or that you are a failure or have let yourself or your family down: several days 7. Trouble concentrating on things, such as reading the newspaper or watching television: more than half the days 8. Moving or speaking so slowly that other people could have noticed. Or the opposite - being so fidgety or restless that you have been moving around a lot more than usual: not at all 9. Thoughts that you would be better off or of hurting yourself in some way: not at all Total score: 8 Depression Screening Interpretation: Positive Depression Screening Follow-up: Existing condition and In treatment Depression Screening Done: Yes 90876 - PHQ-9 Billing: Yes Source: Developed by Drs. Get Garcia, Shante Yi, Domingo Sanchez and colleagues, with an educational eduard from [email or web address]. Thrive Questionnaire Date Thrive assessed: 12/15/24 I am a: Patient What is your living situation today?: I have a steady place to live Within the past 12 months, did the food you bought not last and you didn't have the money to get more?: Never true Within the past 12 months, did you worry whether your food would run out before you got money to buy more?: Never true Do you have trouble paying for medicines?: No Do you have trouble getting transportation to medical appointments?: No Do you have trouble paying your heating and electricity bill?: No Do you have trouble taking care of your child, family member or friend?: No Do you have trouble with day-to-day activities such as bathing, preparing meals, shopping, managing finances, etc.?: Yes Are you currently unemployed and looking for a job?: No Are you interested in more education?: No Please select the resources that you would like help with: None Currently or been in a relationship where the following occur: No concerns reported THRIVE Score: 0 AUDIT C Alcohol Use Questionnaire (AUDIT-C) 1. How often do you have a drink containing alcohol?: Never 3. How often do you have six or more drinks on one occasion?: Never Total Score: 0 CAREY-7 AMB Questionnaire CAREY-7 Date CAREY - 7 assessed: 12/15/24 Feeling nervous, anxious, or on edge: 3 = Nearly every day Not being able to stop or control worryin = More than half the days Worrying too much about different things: 2 = More than half the days Trouble relaxin = Nearly every day Being so restless that it is hard to sit still: 0 = Not at all Becoming easily annoyed or irritable: 1 = Several days Feeling afraid as if something awful might happen: 3 = Nearly every day Total CAREY-7 score (0-4 normal; 5-9 mild; 10-14 moderate; 15-21 severe): 14 Source: Developed by Drs. Get Garcia, Domingo Díaz and colleagues, with an educational eduard from [email or web address]. CAREY-7 Assessment Billing CAREY-7 Assessment Tool: CAREY-7 Assessment 33301 Physical exam (Primary Care) Vital Signs: Last Vital Signs Temp 98.4 F 12/15/24 11:39 Pulse 88 12/15/24 11:39 BP 106/68 12/15/24 11:39 Pulse Ox 98 12/15/24 11:39 Oxygen Delivery Method Room Air 12/15/24 11:39 BMI result Body Mass Index 18.9 Tobacco/Smoking Status: Tobacco use Status Tobacco use date assessed 12/15/24 12/15/24 11:43 Patient Tobacco Use Status Never used Tobacco 12/15/24 11:35 e-Cigarette/Vaping Use Currently Using 12/15/24 11:35 PHQ-9: PHQ-9 Score PHQ-9: Total score 8 12/15/24 13:40 Depression Screening Interpretation: Positive Depression Screening Follow-up: Existing condition and In treatment Thrive Assessment: Date of Thrive Assessment Date Thrive assessed 12/15/24 12/15/24 11:43 Currently or been in a relationship where the following occur: No concerns reported Coding Level of Care Code Est Pt Prev Care 40-64y(12684) Diagnoses Routine physical examination Z00.00 Cervical spondylosis M47.812 Thoracic spondylosis M47.814 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) I69.390 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) I69.393 Spasticity as late effect of cerebrovascular accident (CVA) I69.398; R25.2 Additional Codes CAREY-7 Assessment Billing - CAREY-7 Assessment Tool: CAREY-7 Assessment 44524 ([id number]) PHQ-9 - 64770 - PHQ-9 Billing: Yes ([id number]) Assessment & Plan Assessment & Plan (1) Routine physical examination: Code(s): Z00.00 - Encounter for general adult medical examination without abnormal findings Category: Medical (2) Cervical spondylosis: Code(s): M47.812 - Spondylosis without myelopathy or radiculopathy, cervical region Category: Medical (3) Thoracic spondylosis: Code(s): M47.814 - Spondylosis without myelopathy or radiculopathy, thoracic region Category: Medical (4) 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 As part of this visit we reviewed the following issues, which are considered and essential part of preventative health in this age group: - Breast Cancer screening - Annual [employer] Information Clerk exam - Screening for colon cancer - Blood pressure screening annually - Cholesterol screening - Screening for depression - Education about skin cancer - Recommendations about immunizations - Recommendation of an eye exam - Screening for substance abuse Refer to PT, OT, Speech at [facility]. Increase Flexeril to 5 mg TID. The patient is cautioned that the medication can cause sedation and drowsiness. They should not drive or operate heavy machinery when taking it. Follow up in 3 months. Orders: Orders PT Evaluation and Treatment Today H54.8 - Legal blindness, as defined in [place], I69.390 - Apraxia following cerebral infarction, I69.393 - Ataxia following cerebral infarction, I69.398 - Other sequelae of cerebral infarction, M47.812 - Spondylosis without myelopathy or radiculopathy, cervical region, M47.814 - Spondylosis without myelopathy or radiculopathy, thoracic region, R25.2 - Cramp and spasm OT Evaluation and Treatment Today H54.8 - Legal blindness, as defined in [place], I69.30 - Unspecified sequelae of cerebral infarction, I69.390 - Apraxia following cerebral infarction, I69.393 - Ataxia following cerebral infarction, I69.398 - Other sequelae of cerebral infarction, M47.812 - Spondylosis without myelopathy or radiculopathy, cervical region, M47.814 - Spondylosis without myelopathy or radiculopathy, thoracic region, R25.2 - Cramp and spasm Referrals Behavioral Health Referral F32.A - Depression, unspecified, F41.9 - Anxiety disorder, unspecified Speech and Hearing Referral I69.390 - Apraxia following cerebral infarction Medications: Changed From cyclobenzaprine 5 mg PO BID PRN 60 tabs 2RF muscle spasm To cyclobenzaprine 5 mg PO TID PRN 90 tabs 2RF muscle spasm
[2024-12-15 11:39] VITALS: BP 106/68; PULSE 88; TEMP 36.9; O2SAT 98; BMI 18.9
== END 2024-12-15 12:25 | disposition home or self-care (01) ==
LOC: HO.HMCFM 11:20
PROVIDERS: PCP Physician Assistant Medical; Visit Provider Physician Assistant Medical
DX: Z00.00 Encounter for general adult medical examination without abnormal findings (principal); M47.812 Spondylosis without myelopathy or radiculopathy, cervical region; M47.814 Spondylosis without myelopathy or radiculopathy, thoracic region; I69.390 Apraxia following cerebral infarction; I69.393 Ataxia following cerebral infarction; I69.398 Other sequelae of cerebral infarction; R25.2 Cramp and spasm

== ENCOUNTER → 2024-12-15 11:20 | Outpatient (BNVA) | payer MEDICARE, MEDICAID, SELFPAY | PROVIDERS: PCP Physician Assistant Medical; Visit Provider Physician Assistant Medical | DX: Z00.01 Encounter for general adult medical examination with abnormal findings (principal); M47.812 Spondylosis without myelopathy or radiculopathy, cervical region; M47.814 Spondylosis without myelopathy or radiculopathy, thoracic region; I69.390 Apraxia following cerebral infarction; I69.393 Ataxia following cerebral infarction; I69.398 Other sequelae of cerebral infarction; R25.2 Cramp and spasm | CPT/HCPCS: 96127; 99396 ==

== ENCOUNTER 2024-12-20 11:22 | Outpatient (AMB) | payer MEDICARE, MEDICAID, SELFPAY ==
--- NOTE | 2024-12-20 11:26 | MHC.OFFVIS ---
Vital Signs 12/20/24 11:33 Height 5 ft 1 in Weight 100 lb BMI 18.9 BP 98/64 Blood Pressure Location Rt brachial Position Sitting Pulse 80 Pulse Source Pulse Oximeter Pulse Oximetry (%) 98 Oxygen Delivery Method Room Air Intake Visit Reasons: [place] screening Intake Note: New pt for recall colo. Last one was in her 20s. Pt states this is her first routine colo. CC: Hx of eating disorder and constipation but states that she is well managed currently. Stripper And Printer Required: No Accompanied by: Other Relationship Allergies No Known Allergies Allergy (Verified 12/20/24 11:26) HPI HPI [place] screening: Details: 44 year old? female with past medical history of CVA, anxiety, depression, hypoxia, hypothyroidism, legally blind, eating disorder in remission is here today for pre colonoscopy screening.? Patient was sent to us by her PCP.? Patient had diagnostic colonoscopy in her 20's. This is her 1st colonoscopy screening.? Patient had eating disorder when she was very young. Currently patient will have constipation occasionally. Otherwise patient is doing well. Denies any personal or family history of gastrointestinal disease, colon polyps, or CRC.? Denies history of difficulty with sedation or anesthesia in the past.? Negative for history of sleep apnea.? Denies any history of cardiac, renal, pulmonary, or hepatic disease.?? No history of infectious? diseases like hepatitis A, B, C, HIV or tuberculosis.? 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 Alcohol intake: former Patient Tobacco Use Status: Never used Tobacco e-Cigarette/Vaping Use: Currently Using Substance Use Type: Marijuana service: No Current occupational status: disabled Current occupational exposures/hazards: No Cognitive needs: No Hearing needs: No Vision needs: Yes Review of Systems Const Denies weight gain and Denies weight loss ENT Reports no additional complaints, Denies dysphagia and Denies odynophagia Card Reports no additional complaints Resp Reports no additional complaints GI Denies abdominal pain, Denies belching, Denies melena, Denies bloating, Denies change in bowel habits, Denies dysphagia, Denies excessive flatus, Denies dyspepsia, Denies heartburn, Denies diarrhea, Denies loose stools, Denies nausea, Denies odynophagia and Denies vomiting Musc Reports no additional complaints Neuro Reports no additional complaints Psych Reports no additional complaints Endo Reports no additional complaints Physical Exam Vital Signs: Last Vital Signs Pulse 80 12/20/24 11:33 BP 98/64 12/20/24 11:33 Pulse Ox 98 12/20/24 11:33 Oxygen Delivery Method Room Air 12/20/24 11:33 BMI result Body Mass Index 18.9 Const Other: Patient is sitting in the wheelchair General: healthy appearing and no acute distress Nutritional Appearance: well nourished Orientation/consciousness: patient oriented x3 Resp Effort & Inspection: normal respiratory effort, able to speak in complete sentences, no tracheal deviation and symmetric chest movement Auscultation: clear to auscultation bilaterally Cardio Rate: regular rate GI Inspection: Yes normal to inspection and No distended Palpation (GI): Soft to palpation, not firm, nontender and No hepatosplenomegaly present Auscultation: normal bowel sounds General: Yes no CVA tenderness Back/Spine/Pelvis Back: no CVA tenderness Skin General skin exam: elasticity normal, turgor normal and dry skin Neuro General: patient oriented x3 Psych Appearance: grossly normal Mental Status: mental status grossly normal Assessment & Plan Assessment & Plan (1) Screen for colon cancer: Code(s): Z12.11 - Encounter for screening for malignant neoplasm of colon Plan Patient denies any cardiac or respiratory symptoms.? Denies any issues with anesthesia in the past.? Denies any history of sleep apnea.? No history infectious diseases in the past or present.? Not on any anticoagulation therapy.? Occasional constipation. Patient has a history of stroke, spasticity as a late effect from stroke. She has been doing well. Denies any cardiac or respiratory symptoms. No family or personal history of colon cancer or polyps.? Patient denies melena, hematochezia, unintentional weight loss or ribbon like stools.? Discussed at length the pre-procedure,? prep, diet & medications as well as what to expect prior, during and after the procedure.?? Stressed the importance of good bowel prep.? Recommended the use of Vaseline or Calmoseptine OTC & baby wipes with bowel movements to promote comfort.? ?Patient verbalizes understanding and agrees to plan of care.? She was given the opportunity to ask questions and all questions answered.? We will see her after the procedure.? Medications: New bisacodyl (Dulcolax (bisacodyl)) take 4 tabs at noon the day before your colonoscopy 20 mg (4 x 5 mg) PO ONCE 4 tabs 0RF constipation 1 day Z12.11 - Encounter for screening for malignant neoplasm of colon polyethylene glycol 3350 (Miralax) As directed by gastroenterology department at [facility] 238 grams PO ONCE 238 grams 0RF Z12.11 - Encounter for screening for malignant neoplasm of colon Coding Level of Care Code New Pt Level 3 (77705) Diagnoses Screen for colon cancer Z12.11 Time Spent (min) 40 Comment 30 minutes spent with patient and additional 10 minutes spent reviewing her records
[2024-12-20 11:33] VITALS: BP 98/64; PULSE 80; O2SAT 98; BMI 18.9
== END 2024-12-20 12:05 | disposition home or self-care (01) ==
LOC: HO.HGI 11:23
PROVIDERS: PCP Physician Assistant Medical; Visit Provider Nurse Practitioner Family
DX: Z01.818 Encounter for other preprocedural examination (principal); Z12.11 Encounter for screening for malignant neoplasm of colon
CPT/HCPCS: 99024

== ENCOUNTER → 2024-12-20 11:22 | Outpatient (BNVA) | payer MEDICARE, MEDICAID, SELFPAY | PROVIDERS: PCP Physician Assistant Medical; Visit Provider Nurse Practitioner Family | DX: Z01.818 Encounter for other preprocedural examination (principal) | CPT/HCPCS: 99212 ==